=== PATIENT | female | born 2000 | race Caucasian/White ===

== ENCOUNTER 2018-04-19 19:51 | Emergency (ER) | payer OTHER, SELFPAY ==
[2018-04-19 20:07] VITALS: BP 124/89; PULSE 84; RESP 14; TEMP 36.9; O2SAT 100; BMI 21.2
--- NOTE | 2018-04-19 20:33 | ED.EXTPRO ---
HPI - Extremity Problem <Jennifer Wise PA-C - Last Filed: 04/19/18 22:17> General Chief complaint: Extremity Problem,Nontraumatic Stated complaint: INFECTION LEFT FOOT Time Seen by Provider: 04/19/18 20:33 Source: patient and family Mode of arrival: ambulatory Limitations: no limitations History of Present Illness HPI Narrative: this year old female comes to left foot pain with a bump and redness on her foot. She states this has been gradually worsening since Saturday, when she 1st noticed it. She states that she feels like her toes are somewhat swollen. Pain can track up the side of her foot into the side of her calf. She denies any fever, chills, or sweats. She denies any trauma or bites. She denies any new exercise or physical activity change. She states that pain is worse with bearing weight. She does have a history of tendinitis remotely in that foot but not recently. She denies any chest pain, dyspnea, or history of blood clots. She denies (on OCP with no missed doses in the last month, and has menses now). She denies other new complaints on systems review. She denies family history of blood clots aside from 1 grandparent who had some type of bleeding disorder Related Data Previous Rx's Medication Instructions Recorded cephalexin 500 mg PO Q6H #26 caplet 04/19/18 Allergies Allergy/AdvReac Type Severity Reaction Status Date / Time No Known Drug Allergies Allergy Verified 04/19/18 20:07 Review of Systems <Jennifer Wise PA-C - Last Filed: 04/19/18 22:17> Review of Systems All systems reviewed & are unremarkable except as noted in HPI and below Exam <Jennifer Wise PA-C - Last Filed: 04/19/18 22:17> Initial Vital Signs Initial Vital Signs: Vital Signs Temperature 98.4 F 04/19/18 20:07 Pulse Rate 84 04/19/18 20:07 Respiratory Rate 14 04/19/18 20:07 Blood Pressure 124/89 04/19/18 20:07 Pulse Oximetry 100 04/19/18 20:07 GENERAL APPEARANCE: Patient sitting comfortably, in no distress. NECK/THYROID: Neck supple, no JVD. LUNGS: Clear to auscultation bilaterally. HEART: Regular rate and rhythm without murmur, normal S1, S2, no S3 or S4. EXTREMITIES: No cyanosis or edema. No calf tenderness centrally but mild tenderness in the L. medial calf/almaraz border NEUROLOGIC: Alert and oriented, normal speech, and coordination. LE sensation grossly intact MS: She has some slightly increased bony prominence over the L 2nd MT where she is tender to touch. Normal ROM foot and ankle nonweightbearing DERMATOLOGIC: On the left foot dorsum there is some subtle, pink warm erythema over the 1st and 2nd metatarsal area, mildly tender, extends to the ankle but not medially or more laterally. Margins inked <Hudson Lauren DO - Last Filed: 04/19/18 23:45> Initial Vital Signs Initial Vital Signs: Vital Signs Temperature 98.4 F 04/19/18 20:07 Pulse Rate 84 04/19/18 20:07 Respiratory Rate 14 04/19/18 20:07 Blood Pressure 124/89 04/19/18 20:07 Pulse Oximetry 100 04/19/18 20:07 Course <Jennifer Wise PA-C - Last Filed: 04/19/18 22:17> Orders Ordered: ED Orders 04/19/18 20:56 XR foot LT min 3V Stat 04/19/18 21:13 Basic Metabolic Panel Stat Complete Blood Count AUTO DIFF Stat D Dimer Stat Discontinued Medications Cefazolin Sodium (Keflex) 1 bottle MISC SEEINSTR ONE Stop: 04/19/18 21:39 Last Admin: 04/19/18 22:01 Dose: 500 mg Ibuprofen (Advil) 800 mg PO NOW ONE Stop: 04/19/18 20:57 Last Admin: 04/19/18 21:10 Dose: 800 mg Vital Signs - 8 hr 04/19/18 20:07 04/19/18 22:02 Temperature 98.4 F Pulse Rate 84 87 Respiratory Rate 14 15 Blood Pressure 124/89 Blood Pressure [Right Arm] 109/66 Pulse Oximetry 100 100 <DO Kimberley Zhu Last Filed: 04/19/18 23:45> Orders Ordered: ED Orders 04/19/18 20:56 XR foot LT min 3V Stat 04/19/18 21:13 Basic Metabolic Panel Stat Complete Blood Count AUTO DIFF Stat D Dimer Stat Discontinued Medications Cefazolin Sodium (Keflex) 1 bottle MISC SEEINSTR ONE Stop: 04/19/18 21:39 Last Admin: 04/19/18 22:01 Dose: 500 mg Ibuprofen (Advil) 800 mg PO NOW ONE Stop: 04/19/18 20:57 Last Admin: 04/19/18 21:10 Dose: 800 mg Vital Signs - 8 hr 04/19/18 20:07 04/19/18 22:02 Temperature 98.4 F Pulse Rate 84 87 Respiratory Rate 14 15 Blood Pressure 124/89 Blood Pressure [Right Arm] 109/66 Pulse Oximetry 100 100 MDM - Extremity (Nontraumatic) <Jennifer Wise PA-C - Last Filed: 04/19/18 22:17> Lab Data Result diagrams: 04/19/18 21:13 04/19/18 21:13 Lab Results 04/19/18 04/19/18 04/19/18 Range/Units 21:13 21:13 21:13 WBC 5.4 (4.5-11.0) X10^3/uL RBC 4.45 (4.0-5.2) X10^6/uL Hgb 13.0 (12.0-16.0) g/dL Hct 38.1 (36-46) % MCV 85.6 (80-100) fL MCH 29.1 (26-34) PG MCHC 34.1 (30-36) % RDW 13.2 (11.6-14.8) % Plt Count 320 (150-400) X10^3/uL Neut % (Auto) 48.0 L (50-75) % Lymph % (Auto) 39.8 (25-40) % [place] % (Auto) 8.5 (3-14) % Eos % (Auto) 3.1 (2-4) % Baso % (Auto) 0.6 (0-2) % Neut # (Auto) 2600 L (7409-7696) /uL D-Dimer < 200 (<230) ng/mL Sodium 143 (137-145) mmol/L Potassium 4.2 (3.4-5.1) mmol/L Chloride 105 (98-107) mmol/L Carbon Dioxide 29 (22-32) mmol/L BUN 13 (7-17) mg/dL Creatinine 0.70 (0.52-1.04) mg/dL Estimated GFR > 60.0 (>60) mL/min BUN/Creatinine Ratio 18.6 (6-22) Glucose 96 (70-100) mg/dL Calcium 9.0 (8.4-10.2) mg/dL Imaging Data foot: Radiologist's impression: [address] [address] XRay Report Signed Patient: ANNIE WEISS LMR#: [id number] : 2000Acct:[id number] Age/Sex: 17 / FDate of Service: 04/19/18 Loc: ED Accession Number: [id number] Procedure: XR foot LT min 3V Ordering Provider: Jennifer Wise P.A-C PROCEDURE: XR FOOT LT MIN 3V INDICATIONS: 2nd MT pain, swelling TECHNIQUE: 3 views of the foot were acquired. COMPARISON: None. FINDINGS: Bones: No fractures or dislocations. No suspicious bony lesions. Soft tissues: No tibiotalar joint effusion. Achilles tendon appears normal. IMPRESSION: 1. No fracture or subluxation. Dictated by: Damián Gar M.D. on 04/19/2018 at 21:20 Approved by: Damián Gar M.D. on 04/19/2018 at 21:22 <Hudson Lauren DO - Last Filed: 04/19/18 23:45> Lab Data Lab Results 04/19/18 04/19/18 04/19/18 Range/Units 21:13 21:13 21:13 WBC 5.4 (4.5-11.0) X10^3/uL RBC 4.45 (4.0-5.2) X10^6/uL Hgb 13.0 (12.0-16.0) g/dL Hct 38.1 (36-46) % MCV 85.6 (80-100) fL MCH 29.1 (26-34) PG MCHC 34.1 (30-36) % RDW 13.2 (11.6-14.8) % Plt Count 320 (150-400) X10^3/uL Neut % (Auto) 48.0 L (50-75) % Lymph % (Auto) 39.8 (25-40) % [place] % (Auto) 8.5 (3-14) % Eos % (Auto) 3.1 (2-4) % Baso % (Auto) 0.6 (0-2) % Neut # (Auto) 2600 L (7512-1582) /uL D-Dimer < 200 (<230) ng/mL Sodium 143 (137-145) mmol/L Potassium 4.2 (3.4-5.1) mmol/L Chloride 105 (98-107) mmol/L Carbon Dioxide 29 (22-32) mmol/L BUN 13 (7-17) mg/dL Creatinine 0.70 (0.52-1.04) mg/dL Estimated GFR > 60.0 (>60) mL/min BUN/Creatinine Ratio 18.6 (6-22) Glucose 96 (70-100) mg/dL Calcium 9.0 (8.4-10.2) mg/dL Discharge Plan Departure Patient Disposition: Home Clinical Impression: Cellulitis Discharge Date/Time: 04/19/18 22:09 Interventions: ED Discharge Assessment Last Done: 04/19/18 22:08 Instructions: DI for Cellulitis -- Adult Activity Restrictions/Additional Instructions: You should return over the weekend as we talked about if you have acutely worsening symptoms such as more pain, acutely worsening redeness or swelling, or new symptoms such as fever. Otherwise, please follow-up with your PCP or at the [facility] [place] on Saturday or Saturday for recheck as it takes the antibiotics 48-72 hours to start working. Take the first dose tonight as soon as you get home and the 2nd dose first thing in the morning the pills that we gave you here are 250mg, take 2 per dose. 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 Prescriptions: New cephalexin 500 mg capsule 500 mg PO Q6H Qty: 26 RF: 0 Referrals: Nyasia Lorenzo MD [Non-Staff] - <Hudson Lauren DO - Last Filed: 04/19/18 23:45> Cosign ED Attending Giseleature Attestation: I was available for consultation during this patient's emergency department encounter
--- NOTE | 2018-04-19 20:56 | DI.RAD.S_ITS ---
PROCEDURE: XR FOOT LT MIN 3V INDICATIONS: 2nd MT pain, swelling TECHNIQUE: 3 views of the foot were acquired. COMPARISON: None. FINDINGS: Bones: No fractures or dislocations. No suspicious bony lesions. Soft tissues: No tibiotalar joint effusion. Achilles tendon appears normal. IMPRESSION: 1. No fracture or subluxation. Dictated by: Damián Gar M.D. on 04/19/2018 at 21:20 Approved by: Damián Gar M.D. on 04/19/2018 at 21:22
[2018-04-19] MEDS: IBUPROFEN 400 MG TABLET 800 MG PO (21:10)
[2018-04-19 21:26] LABS: Add Manual Diff / Slide Review NO; Basophils Percent Auto 0.6 % (0-2); Eosinophils Percent Auto 3.1 % (2-4); Hematocrit 38.1 % (36-46); Lymphocytes Percent Auto 39.8 % (25-40); Mean Corpuscular HGB Conc 34.1 % (30-36); Mean Corpuscular Hemoglobin 29.1 PG (26-34); Mean Corpuscular Volume 85.6 fL (80-100); Monocytes Percent Auto 8.5 % (3-14); Neutrophils Absolute Auto 2600 /uL (3000-5900); Platelet Count 320 X10^3/uL (150-400); Red Blood Cell Count 4.45 X10^6/uL (4.0-5.2); Red Cell Distribution Width 13.2 % (11.6-14.8); White Blood Cell Count 5.4 X10^3/uL (4.5-11.0)
[2018-04-19 21:33] LABS: BUN Creatinine Ratio 18.6 (6-22); Blood Urea Nitrogen 13 mg/dL (7-17); Carbon Dioxide 29 mmol/L (22-32); Chloride 105 mmol/L (98-107); Estimated Glomerular Filt Rate > 60.0 mL/min (>60); Glucose 96 mg/dL (70-100); HEMOLYSIS < 15 (0-50); Potassium 4.2 mmol/L (3.4-5.1); Sodium 143 mmol/L (137-145)
[2018-04-19 21:34] LABS: D Dimer < 200 ng/mL (<230)
[2018-04-19] MEDS: cephALEXin 250 MG PREPACK 1 BOTTLE MISC (22:01)
[2018-04-19 22:02] VITALS: BP 109/66; PULSE 87; RESP 15; O2SAT 100
--- NOTE | 2018-04-24 16:41 | PC.NURSE ---
Pts mother states that pt is feeling much better.
== END 2018-04-19 22:09 | disposition home or self-care (01) ==
PROVIDERS: Emergency Provider Internal Medicine
DX: L03.116 Cellulitis of left lower limb (principal)
CPT/HCPCS: 36415; 73630; 80048; 85025; 85379; 99282; 99284

== ENCOUNTER 2025-06-21 07:24 | Emergency (ER) | payer OTHER, SELFPAY ==
[2025-06-21 07:34] VITALS: BP 115/85; PULSE 105; RESP 12; TEMP 37.2; O2SAT 100; BMI 18.8
--- NOTE | 2025-06-21 07:37 | ED_ITS ---
HPI - Chest Pain General Chief Complaint: Chest Pain Stated Complaint: Chest pain, 40 minutes ago Time Seen by Provider: 06/21/25 07:37 Source: patient Mode of arrival: Ambulatory History of Present Illness HPI narrative: Patient here with mother for complaints of sudden onset 6:15 a.m. today with left-sided chest tightness 7/10 and currently now 4/10. Worse with deep breath. No recent illness fever chills cough cold congestion. She states does not feel like her anxiety attacks. She is on propranolol for it. She did stop smoking/vaping and marijuana 1 week ago. He has had hard time sleeping. Vital signs noted heart rate noted. No history of blood clots in legs or lungs. No shortness of breath no nausea no sweating. No muscle strain of the chest or arms this past weekend. No exertional chest pain or shortness of breath. No primary family history of coronary artery disease or aortic dissection or aneurysm or DVT or pulmonary embolism. Discomfort is worse with deep breath. No prior history of pleurisy Related Data Previous Rx's ?Medication ?Instructions ?Recorded cephalexin 500 mg capsule 500 mg PO Q6H 7 days #26 cap lets 04/19/18 hydroxyzine HCl 25 mg tablet 50 mg (2 x 25 mg) PO BEDT VICTOR MANUEL insom 06/21/25 #20 tabs Allergies Allergy/AdvReac Type Severity Reaction Status Date / Time No Known Drug Allergies Allergy Verified 04/19/18 20:07 Review of Systems Review of Systems Narrative: GENERAL: Negative chills, fatigue, malaise, fever, sweats. HEENT: Negative sinus pain, ear pain, sore throat RESPIRATORY: Negative dyspnea, cough CARDIOVASCULAR: Positive chest pain, negative palpitations GASTROINTESTINAL: Negative vomiting, nausea, abdominal pain : Negative dysuria, frequency, hematuria MUSCULOSKELETAL: Negative muscle or bony pain SKIN: Negative rash, skin lesions NEUROLOGIC: Negative weakness, numbness, positive tingling to the fingers ROS Unobtainable: All systems reviewed & are unremarkable except as noted in HPI and below Patient History Medical History (Updated 06/21/25 @ 08:50 by Chris Velásquez MD) Lacrimal duct stenosis, congenital Seasonal allergies Surgical History (Updated 04/19/18 @ 21:16 by Jennifer Wise PA-C) History of tonsillectomy and adenoidectomy Hx of tympanostomy tubes Social History (Updated 04/19/18 @ 22:17 by Jennifer Wise PA-C) Smoking Status: Former smoker Smoking Status: Former smoker tobacco type: vaping Exam Narrative Exam Narrative: GENERAL: in no distress, not toxic not dyspneic HEAD: Normocephalic. EYES: Pupils equal round ENT: Mucous membranes moist. NECK: Trachea midline. CARDIOVASCULAR: Regular rate and rhythm, no murmur no friction rub, increased pain with deep breath, discomfort on the left chest.. Strong bilateral carotid and radial pulses RESPIRATORY: Clear to auscultation. Breath sounds equal bilaterally. No wheezes, rales, or rhonchi. GASTROINTESTINAL: Abdomen soft, BACK: No flank tenderness. EXTREMITIES: No gross deformities. NEURO: AOx4. Clear speech SKIN: Warm and dry PSYCH: Not anxious, is cooperative Initial Vital Signs Initial Vital Signs: Vital Signs Temperature 98.9 F 06/21/25 07:34 Pulse Rate 105 H 06/21/25 07:34 Respiratory Rate 12 06/21/25 07:34 Blood Pressure 115/85 06/21/25 07:34 Pulse Oximetry 100 06/21/25 07:34 Oxygen Delivery Method Room Air 06/21/25 07:34 Course Orders Ordered: ED Orders 06/21/25 07:40 XR chest 1V Stat EKG-12 Lead Stat 06/21/25 07:55 Complete Blood Count AUTO DIFF Stat Comprehensive Metabolic Panel Stat D Dimer Stat PTT Partial Thromboplastin John Stat Prothrombin Time INR Stat Troponin I Stat 06/21/25 09:26 Trop I [Troponin I] Stat Discontinued Medications Ketorolac Tromethamine (Ketorolac 30 Mg/Ml Vial) 15 mg IV NOW ONE Stop: 06/21/25 08:38 Last Admin: 06/21/25 08:43 Dose: 15 mg Documented By: [facility] Vital Signs Vital signs: Vital Signs - 8 hr 06/21/25 07:34 06/21/25 08:49 06/21/25 10:26 Temperature 98.9 F Pulse Rate 105 H 86 93 H Respiratory Rate 12 12 12 Blood Pressure 115/85 101/64 102/73 Pulse Oximetry 100 100 98 Oxygen Delivery Method Room Air Room Air Room Air MDM - Chest Pain Lab Data 06/21/25 07:55 06/21/25 07:55 Labs: Lab Results 12/08/25 12/08/25 Range/Units 07:55 09:26 WBC 11.4 H (4.5-11.0) X10^3/uL RBC 4.29 (4.0-5.2) X10^6/uL Hgb 13.2 (12.0-16.0) g/dL Hct 38.5 (36-46) % MCV 89.6 (80-100) fL MCH 30.8 (26-34) PG MCHC 34.4 (30-36) % RDW 13.2 (11.6-14.8) % Plt Count 273 (150-400) X10^3/uL Neut % (Auto) 83.8 H (50-75) % Lymph % (Auto) 8.0 L (25-40) % [place] % (Auto) 6.9 (3-14) % Eos % (Auto) 1.1 L (2-4) % Baso % (Auto) 0.2 (0-2) % Neut # (Auto) 9500 H (3923-2781) /uL Lymph # (Auto) 900 L (2524-7732) /uL [place] # (Auto) 800 (0-900) /uL Eos # (Auto) 100 (0-450) /uL Baso # (Auto) 0 (0-100) /uL PT 11.6 (9.4-12.5) SECONDS INR 1.0 (0.9-1.3) APTT 31 (25.1-36.5) SECONDS D-Dimer 323 (<500) ng/ml Sodium 140 (137-145) mmol/L Potassium 3.5 (3.4-5.1) mmol/L Chloride 108 H (98-107) mmol/L Carbon Dioxide 22 (22-32) mmol/L BUN 13 (7-17) mg/dL Creatinine 0.67 (0.52-1.04) mg/dL Estimated GFR > 60 (>60) mL/min BUN/Creatinine Ratio 19.4 (6-22) Glucose 97 (70-99) mg/dL Calcium 8.5 (8.4-10.2) mg/dL Total Bilirubin 0.4 (0.2-1.3) mg/dL AST 20 (14-36) IU/L ALT 15 (<35) IU/L Alkaline Phosphatase 47 (38-126) U/L Troponin I < 0.012 0.014 (0.01-0.034) ng/mL Total Protein 6.9 (6.3-8.2) g/dL Albumin 4.3 (3.5-5.0) g/dL Globulin 2.6 (1.7-4.1) g/dL Albumin/Globulin Ratio 1.7 (1.0-2.8) Imaging Data Chest x-ray: Radiologist's Impression: [address] [address] XRay Report Signed Patient: Karol Munoz MR#: [id number] : 2000 Acct:[id number] Age/Sex: 24 / F Date of Service: 06/21/25 Loc: ED Accession Number: [id number] Procedure: XR chest 1V Ordering Provider: Chris Velásquez MD PROCEDURE: XR CHEST 1V INDICATIONS: chest pain TECHNIQUE: One view of the chest was acquired. COMPARISON: None. FINDINGS: Surgical changes and devices: None. Lungs and pleura: Lungs are clear. No pleural effusions or pneumothorax. Mediastinum: Mediastinal contours appear normal. Heart size is normal. Bones and chest wall: No suspicious bony lesions. Overlying soft tissues appear unremarkable. IMPRESSION: No acute cardiopulmonary abnormality is seen. Dictated by: Vu Muñoz M.D. on 06/21/2025 at 8:17 Approved by: Vu Muñoz M.D. on 06/21/2025 at 8:21 MDM Narrative Medical decision making narrative: Patient here with mother for complaints of sudden onset 6:15 a.m. today with left-sided chest tightness 7/10 and currently now 4/10. Worse with deep breath. No recent illness fever chills cough cold congestion. She states does not feel like her anxiety attacks. She is on propranolol for it. She did stop smoking/vaping and marijuana 1 week ago. He has had hard time sleeping. Vital signs noted heart rate noted. No history of blood clots in legs or lungs. No shortness of breath no nausea no sweating. No muscle strain of the chest or arms this past weekend. No exertional chest pain or shortness of breath. No primary family history of coronary artery disease or aortic dissection or aneurysm or DVT or pulmonary embolism. Discomfort is worse with deep breath. No prior history of pleurisy. Patient does have tingling bilateral hands/fingers MDM After history and exam, CBC CMP troponin x2 D-dimer chest x-ray EKG, Toradol pending results. Patient denies does not want a test. Differential considered: Includes but not limited to STEMI non-STEMI pulmonary embolism aortic dissection costochondritis pleurisy Medical records reviewed: no recent visit for this complaint Lab Test results independently reviewed as above. Pertinent findings: WBC 11.4 hemoglobin 13.2 INR 1.0 D-dimer 323 sodium 140 potassium 3.5 troponin less than 0.012 repeat troponin 0.014 Independently reviewed EKG Normal sinus rhythm normal EKG rate 85 Imaging studies independently reviewed: Chest x-ray no acute finding Consultations: None indicated at this time Re-evaluations: 8:48 a.m.. Updated patient results, Toradol was ordered. Results are reassuring at this time. 9:20 a.m.. Patient is symptom free chest pain-free after Toradol. Reviewed with her this is likely pleurisy. She agrees. She would like hydroxyzine at night to help her sleep as she has been struggling to stop smoking and marijuana. Return precautions reviewed. Second troponin pending and will be discharge pending results. She agrees. 10:17 a.m.. Heart rate 86. Patient remains symptom-free after Toradol. Discussion: Appropriate for discharge home. Exam is reassuring. Return precautions reviewed. Patient feeling better after Toradol. Likely pleurisy. Patient just stopped marijuana and vaping this past week. Return precautions reviewed. They desire discharge home. Tingling to the hands nonspecific. Could be component of anxiety Diagnosis: Pleurisy Discharge Plan Departure Patient Disposition: Home Clinical Impression: Pleurisy Instructions: DI for Atypical Chest Pain, DI for Pleurisy, DI for Insomnia Activity Restrictions/Additional Instructions: Your exam and laboratory studies are reassuring. Your likely experiencing pleurisy, irritation of the lung lining, may continue ibuprofen for discomfort. See family doctor in a week for re-evaluation. Return if worse if any questions or concerns Prescriptions: New hydroxyzine HCl 25 mg tablet 50 mg PO BEDTIME Qty: 20 0RF No Action cephalexin 500 mg capsule 500 mg PO Q6H Qty: 26 0RF Referrals: Kim Carrizales MD [Primary Care Provider, Family Practice] Stand Alone Forms: Patient Portal/API, Work Release Note
--- NOTE | 2025-06-21 07:40 | DI.RAD.S_ITS ---
PROCEDURE: XR CHEST 1V INDICATIONS: chest pain TECHNIQUE: One view of the chest was acquired. COMPARISON: None. FINDINGS: Surgical changes and devices: None. Lungs and pleura: Lungs are clear. No pleural effusions or pneumothorax. Mediastinum: Mediastinal contours appear normal. Heart size is normal. Bones and chest wall: No suspicious bony lesions. Overlying soft tissues appear unremarkable. IMPRESSION: No acute cardiopulmonary abnormality is seen. Dictated by: Vu Muñoz M.D. on 06/21/2025 at 8:17 Approved by: Vu Muñoz M.D. on 06/21/2025 at 8:21
--- NOTE | 2025-06-21 07:43 | EKG_ITS ---
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
[2025-06-21 08:04] LABS: Add Manual Diff / Slide Review NO; Hematocrit 38.5 % (36-46); Hemoglobin 13.2 g/dL (12.0-16.0); Lymphocytes Absolute Auto 900 /uL (1100-4500); Mean Corpuscular HGB Conc 34.4 % (30-36); Mean Corpuscular Hemoglobin 30.8 PG (26-34); Mean Corpuscular Volume 89.6 fL (80-100); Platelet Count 273 X10^3/uL (150-400)
[2025-06-21 08:11] LABS: INR 1.0 (0.9-1.3); Prothrombin Time 11.6 SECONDS (9.4-12.5)
[2025-06-21 08:14] LABS: PTT Partial Thromboplastin Tim 31 SECONDS (25.1-36.5)
[2025-06-21 08:16] LABS: Alanine Aminotransferase 15 IU/L (<35); Albumin 4.3 g/dL (3.5-5.0); Albumin Globulin Ratio 1.7 (1.0-2.8); Alkaline Phosphatase 47 U/L (38-126); Blood Urea Nitrogen 13 mg/dL (7-17); Calcium 8.5 mg/dL (8.4-10.2); Carbon Dioxide 22 mmol/L (22-32); Chloride 108 mmol/L (98-107); Estimated Glomerular Filt Rate > 60 mL/min (>60); Globulin 2.6 g/dL (1.7-4.1); Glucose 97 mg/dL (70-99); HEMOLYSIS < 15 (0-50); Potassium 3.5 mmol/L (3.4-5.1); Sodium 140 mmol/L (137-145); Total Protein 6.9 g/dL (6.3-8.2)
[2025-06-21 08:28] LABS: Troponin I < 0.012 ng/mL (0.01-0.034)
[2025-06-21] MEDS: KETOROLAC 30 MG/ML VIAL 15 MG IV (08:43)
[2025-06-21 08:49] VITALS: BP 101/64; PULSE 86; RESP 12; O2SAT 100
[2025-06-21 10:06] LABS: Troponin I 0.014 ng/mL (0.01-0.034)
[2025-06-21 10:26] VITALS: BP 102/73; PULSE 93; RESP 12; O2SAT 98
== END 2025-06-21 10:28 | disposition home or self-care (01) ==
PROVIDERS: Emergency Provider Emergency Medicine; PCP Family Medicine
DX: R09.1 Pleurisy (principal); Z87.891 Personal history of nicotine dependence
CPT/HCPCS: 36415; 71045; 80053; 84484; 85025; 85379; 85610; 85730; 93005; 93010; 96374; 99284; J1885